=== PATIENT | female | born 1945 | race Caucasian/White ===

== ENCOUNTER 2019-02-09 08:05 | Inpatient (IN) | payer MEDICARE, OTHER ==
[2019-02-09] MEDS ORDERED: FAMOTIDINE 20 MG/50 ML IVPB 20 MG/50 ML MG IVPB ONE (08:24)
[2019-02-09] MEDS ORDERED: ACETAMINOPHEN 1000 MG/100 ML VIAL (NON FORMULARY) IVPB ONE (08:24)
[2019-02-09] MEDS ORDERED: SODIUM CHLORIDE 0.9% 1000 ML INFUS.BAG IV ONE ×2 (08:24→10:22)
[2019-02-09] MEDS ORDERED: ONDANSETRON 4 MG/2 ML VIAL IVPUSH ONE (08:24)
[2019-02-09] MEDS ORDERED: ONDANSETRON 4 MG/2 ML VIAL ONE (08:42)
[2019-02-09] MEDS ORDERED: ACETAMINOPHEN INJECTION 100 ML IVPB ONE (08:42)
[2019-02-09] MEDS ORDERED: PIPERACILLIN/TAZOB 3.375 GM 3.375 GM in DEXTROSE 5%-WATER - 50 ML IVPB ONE (09:02)
--- NOTE | 2019-02-09 09:02 | PDOC ---
Documentation entered by Angle Guthrie SCRIBE, acting as scribe for Bee Montalvo DO. Bee Montalvo, : This documentation has been prepared by the [place] [employer], SCRIBE, under my direction and personally reviewed by me in its entirety. I confirm that the documentation accurately reflects all work, treatment, procedures, and medical decision making performed by me. History of Present Illness - General Chief Complaint: Pain, Acute Stated Complaint: CHEST PAIN Time Seen by Provider: 02/09/19 08:12 - History of Present Illness Initial Comments: The patient is a 73 year old female, with a significant PMH of DMII, Hepatitis B , HLD, HTN, obesity, colon polyps, and arthralgia (right shoulder), who presents to the ED for evaluation of abdominal pain for 2 days. Patient complains of diffuse abdominal pain, worst at the RUQ, that began yesterday but became unbearable this morning. She reports 10 episodes of diarrhea, nausea, and 4 episodes of non-bloody vomit that were yellow in color. Patient states she had a hamburger yesterday, which her family members had as well and are not sick. She endorses slight chest pain and SOB secondary to her abdominal pain. Patient denies any recent hospitalizations or consumption of antibiotics. Denies fever, chills, constipation, blood in stool, dysuria, hematuria, cough, runny nose, sore throat. Allergies: NKA, NKDA Surgical History: None reported Social History: Denies EtOH, tobacco, or illicit drug use PCP: Dr. Griggs Past History - Past Medical History Allergies/Adverse Reactions: Allergies Allergy/AdvReac Type Severity Reaction Status Date / Time No Known Allergies Allergy Verified 02/09/19 08:16 Home Medications: Ambulatory Orders Amlodipine Besylate [Norvasc -] 10 mg PO DAILY 02/09/19 Hydrochlorothiazide [Hctz -] 25 mg PO DAILY 02/09/19 Lisinopril 20 mg PO DAILY 02/09/19 Metformin HCl [Glucophage] 500 mg PO BID 02/09/19 Simvastatin 20 mg PO HS 02/09/19 COPD: No Diabetes: Yes HTN: Yes - Psycho Social/Smoking Cessation Hx Smoking History: Never smoked Have you smoked in the past 12 months: No Hx Alcohol Use: No Drug/Substance Use Hx: No Substance Use Type: None Review of Systems - Review of Systems Comments:: GENERAL/CONSTITUTIONAL: No fever or chills. No weakness. HEAD, EYES, EARS, NOSE AND THROAT: No change in vision. No ear pain or discharge. No sore throat. GASTROINTESTINAL: +Nausea. +4 episodes of non-bloody vomit that is yellow in color. +10 episodes of diarrhea. +Diffuse abdominal pain, worse over the RUQ. No constipation. GENITOURINARY: No dysuria, frequency, or change in urination. CARDIOVASCULAR: +Slight chest pain (secondary to abdominal pain). +Slight SOB ( secondary to abdominal pain). RESPIRATORY: No cough, wheezing, or hemoptysis. MUSCULOSKELETAL: No joint or muscle swelling or pain. No neck or back pain. SKIN: No rash NEUROLOGIC: No headache, vertigo, loss of consciousness, or change in strength/ sensation. ENDOCRINE: No increased thirst. No abnormal weight change. HEMATOLOGIC/LYMPHATIC: No anemia, easy bleeding, or history of blood clots. ALLERGIC/IMMUNOLOGIC: No hives or skin allergy. *Physical Exam - Vital Signs Last Vital Signs Temp Pulse Resp BP Pulse Ox 97.5 F L 86 24 H 87/45 L 95 02/09/19 08:08 02/09/19 08:08 02/09/19 08:08 02/09/19 08:08 02/09/19 08:08 Heart Score/ECG Review - ECG Intrepretation Comment:: 02/09/19 08:57 sinus at 84, nl axis, nl interval, no acute st/t wave findings ED Treatment Course - LABORATORY CBC & Chemistry Diagram: 02/09/19 08:53 02/09/19 08:53 - RADIOLOGY Radiology Studies Ordered: Category Date Time Status CHEST X-RAY PORTABLE* [RAD] Stat Radiology 02/09/19 08:13 Completed Radiograph Interpretation: EXAM#: TYPE/EXAM: RESULT: [id number] RAD/CHEST X-RAY PORTABLE* Chest: Shortness of breath Impression: No acute chest pathology. Reported By: Hussain Reed MD 02/09/19 08:51 - Medications Given in the ED: ED Medications Discontinued Medications Generic Name Dose Route Start Last Admin Trade Name Freq PRN Reason Stop Dose Admin Acetaminophen 1,000 mg 02/09/19 08:24 02/09/19 08:47 Ofirmev Injection - IVPB 02/09/19 08:25 1,000 mg ONCE ONE Administration Ondansetron HCl 4 mg 02/09/19 08:24 02/09/19 08:47 Zofran Injection IVPUSH 02/09/19 08:25 4 mg ONCE ONE Administration Medical Decision Making - Medical Decision Making Medical Decision Makin:00a: a/p: 73yo female with acute onset of abd pain, n/v/d after eating a burger last night -pt states bilious, but not bloody vomitus -4 episodes of vomiting -10 episodes of diarrhea -no recent hospitalizations or abx -no recent travel -daughter ate same burger -pt with RUQ abd pain and epigastric abd pain -concern for acute alec vs pancreatitis vs gastroenteritis -will send labs, ivf hydration, zofran, tylenol for pain -will perform POCUS GB ultrasound -will monitor and reassess POCUS: gallstones, gb wallthickening, sono murphys - concerning for acute alec will start abx pending labs and discussion with surgery will call surgery when labs result 9:18a cxr clear 9:30a wbc 26 abx ordered case discussed with Dr. Gold who requests formal ultrasound 9:38 pt states feeling better updated on labs lipase 131 repeat abd exam-only RUQ ttp, +murphys 9:50a no elevated lft PMD dr. griggs who [facility] 10:25a case discussed with SYMPHONY - Dr. Benson who accepts pt under Dr. Hodges I, Dr. Bee Montalvo, DO, attest that this document has been prepared under my direction and personally reviewed by me in its entirety. I further attest, that it accurately reflects all work, treatment, procedures and medical decision -making performed by me. Discharge - Discharge Information Problems reviewed: Yes Clinical Impression/Diagnosis: Acute cholecystitis Condition: Guarded - Admission Yes - Follow up/Referral - Patient Discharge Instructions - Post Discharge Activity
[2019-02-09] MEDS ORDERED: PIPERACILLIN/TAZOB 3.375 GM 3.375 GM/50 ML BAG IVPB ONE (09:09)
[2019-02-09 09:11] LABS: VENOUS PC02 58.7 mmHg (38-52); VENOUS PH 7.27 (7.31-7.41)
[2019-02-09 09:15] LABS: BASO % 0.3 % (0-2.0); EOS % 0.3 % (0-4.5); HEMATOCRIT 46.9 % (32.4-45.2); HEMOGLOBIN 15.1 GM/dL (10.7-15.3); LYMPH % 8.7 % (8-40); MCH 28.5 pg (25.7-33.7); MCHC 32.2 g/dl (32.0-36.0); MEAN CELL VOLUME 88.5 fl (80-96); MEAN PLT VOLUME 9.2 fl (7.5-11.1); MONO % 5.6 % (3.8-10.2); NEUT % 85.1 % (42.8-82.8); PLATELET COUNT 269 K/MM3 (134-434); RDW 15.1 % (11.6-15.6); WHITE BLOOD COUNT 26.1 K/mm3 (4.0-10.0)
[2019-02-09 09:19] LABS: VENOUS PO2 < 49 mmHg (28-48)
[2019-02-09 09:40] LABS: ALK PHOS 87 U/L (45-117); ANION GAP 10 MMOL/L (8-16); BILIRUBIN,TOTAL 0.4 mg/dL (0.2-1); BLOOD UREA NITROGEN 19.6 mg/dL (7-18); CALCIUM 9.9 mg/dL (8.5-10.1); CHLORIDE 104 mmol/L (98-107); CO2 24 mmol/L (21-32); CREATININE 1.4 mg/dL (0.55-1.3); GLUCOSE,RANDOM 130 mg/dL (74-106); SGOT/AST 31 U/L (15-37); SGPT/ALT 35 U/L (13-61); SODIUM 138 mmol/L (136-145); TOT PROT 7.9 g/dl (6.4-8.2)
[2019-02-09 09:44] LABS: MAGNESIUM 2.2 mg/dL (1.8-2.4)
[2019-02-09] MEDS ORDERED: ACETAMINOPHEN 325 MG TABLET (FP) PO PRN (10:28)
[2019-02-09 10:29] LABS: INR 0.92 (0.83-1.09); PROTHROMBIN TIME (PATIENT) 10.9 SEC (9.7-13.0)
[2019-02-09 10:31] LABS: ACTIVATED PTT 33.9 SECONDS (25.2-36.5)
--- NOTE | 2019-02-09 10:35 | HP ---
CHIEF COMPLAINT: RUQ pain PCP: Dr. Griggs HISTORY OF PRESENT ILLNESS: Patient is a 73 y/o female with a history of diabetes, HLD, HTN, and colon polyps who presents for RUQ pain. Patient reports the pain started this morning. Patient had a burger yesterday and had episodes of vomiting after. Patient has had 4 episodes of NBNB vomiting and multiple episodes of diarrhea. Neither had blood. Patient reports she does not eat much food with fat, she reports she has never had this pain in the past. She denies fever, shortness of breath, headache, or weakness. ER course was notable for: (1)POCUS: wall thickening of gallbladder with multiple stones (2) 500 mL bolus (3) Recent Travel: denies PAST MEDICAL HISTORY: diabetes, HLD, HTN, and colon polyps PAST SURGICAL HISTORY: denies Social History: Smoking: denies Alcohol: denies Drugs: denies Allergies No Known Allergies Allergy (Verified 02/09/19 08:16) HOME MEDICATIONS: Home Medications Medication Instructions Recorded Amlodipine Besylate [Norvasc -] 10 mg PO DAILY 02/09/19 Hydrochlorothiazide [Hctz -] 25 mg PO DAILY 02/09/19 Lisinopril 20 mg PO DAILY 02/09/19 Metformin HCl [Glucophage] 500 mg PO BID 02/09/19 Simvastatin 20 mg PO HS 02/09/19 REVIEW OF SYSTEMS CONSTITUTIONAL: Absent: fever, chills, diaphoresis, generalized weakness, malaise, loss of appetite, weight change HEENT: Absent: rhinorrhea, nasal congestion, throat pain, throat swelling, difficulty swallowing, mouth swelling, ear pain, eye pain, visual changes CARDIOVASCULAR: Absent: chest pain, syncope, palpitations, irregular heart rate, lightheadedness , peripheral edema RESPIRATORY: Absent: cough, shortness of breath, dyspnea with exertion, orthopnea, wheezing, stridor, hemoptysis GASTROINTESTINAL:abdominal pain, nausea, vomiting, diarrhea, Absent: abdominal distension, constipation, melena, hematochezia GENITOURINARY: Absent: dysuria, frequency, urgency, hesitancy, hematuria, flank pain, genital pain MUSCULOSKELETAL: Absent: myalgia, arthralgia, joint swelling, back pain, neck pain SKIN: Absent: rash, itching, pallor HEMATOLOGIC/IMMUNOLOGIC: Absent: easy bleeding, easy bruising, lymphadenopathy, frequent infections ENDOCRINE: Absent: unexplained weight gain, unexplained weight loss, heat intolerance, cold intolerance NEUROLOGIC: Absent: headache, focal weakness or paresthesias, dizziness, unsteady gait, seizure, mental status changes, bladder or bowel incontinence PSYCHIATRIC: Absent: anxiety, depression, suicidal or homicidal ideation, hallucinations. PHYSICAL EXAMINATION Vital Signs - 24 hr 02/09/19 02/09/19 08:08 09:17 Temperature 97.5 F L Pulse Rate 86 Pulse Rate [ 84 Apical] Respiratory 24 H 19 Rate Blood Pressure 87/45 L Blood Pressure 97/50 L [Right Arm] O2 Sat by Pulse 95 Oximetry (%) GENERAL: Awake, alert, and fully oriented, in no acute distress. HEAD: Normal with no signs of trauma. EYES: Pupils equal, round and reactive to light, extraocular movements intact, sclera anicteric, conjunctiva clear. No lid lag. EARS, NOSE, THROAT: Ears normal, nares patent, oropharynx clear without exudates. Moist mucous membranes. NECK: Normal range of motion, supple without lymphadenopathy, JVD, or masses. LUNGS: Breath sounds equal, clear to auscultation bilaterally. No wheezes, and no crackles. No accessory muscle use. HEART: Regular rate and rhythm, normal S1 and S2 without murmur, rub or gallop. ABDOMEN: Soft, nontender, not distended, normoactive bowel sounds, no guarding, no rebound, no masses. No hepatomegaly or splenomegaly. MUSCULOSKELETAL: Normal range of motion at all joints. No bony deformities or tenderness. No CVA tenderness. UPPER EXTREMITIES: 2+ pulses, warm, well-perfused. No cyanosis. No clubbing. No peripheral edema. LOWER EXTREMITIES: 2+ pulses, warm, well-perfused. No calf tenderness. No peripheral edema. NEUROLOGICAL: Cranial nerves II-XII intact. Normal speech. Normal gait. PSYCHIATRIC: Cooperative. Good eye contact. Appropriate mood and affect. SKIN: Warm, dry, normal turgor, no rashes or lesions noted, normal capillary refill. CBC, BMP 02/09/19 08:53 02/09/19 08:53 ASSESSMENT/PLAN: Patient is a 73 y/o female with a history of diabetes, HLD, HTN, and colon polyps who presents for RUQ pain. #acute cholecystitis - As seen on POCUS: gallbladder thickening and multiple stones - RUQ US: gallbladder normal, with stones, hepatomegaly - Dr. Gold aware - zofran q4h prn for nausea, QTC 455 - tylenol prn for pain - reactive leukocytosis - Zosyn 1x given, will continue with Zosyn - f/u Abd CT #DOROTHY - continue LR @ 100 - Cr 1.4, likely 2/2 to volume depletion with lactic acidosis - f/u UA #Lactic acidsois - likely from hypovolemia 2/2 to vomiting and diarrhea - 3.7, f/u repeat @ 1pm > 2 - continue fluids, received 2 boluses in the ED #HTN - hold medications in setting of hypotension #DM - BGM TID AC - SS #obesity - discuss weight loss management - BMI 41 - consider outpatient bariatric surgeon #DVT ppx - SCD's FEN - NPO - continue NS Dispo: monitor on med surg Visit type - Emergency Visit Emergency Visit: Yes ED Registration Date: 02/09/19 Care time: The patient presented to the Emergency Department on the above date and was hospitalized for further evaluation of their emergent condition. - New Patient This patient is new to me today: Yes Date on this admission: 02/10/19 - Critical Care Critical Care patient: No ATTENDING PHYSICIAN STATEMENT I saw and evaluated the patient. I reviewed the resident's note and discussed the case with the resident. I agree with the resident's findings and plan as documented. SUBJECTIVE: OBJECTIVE: ASSESSMENT AND PLAN:
[2019-02-09] MEDS ORDERED: ONDANSETRON 4 MG/2 ML VIAL IVPUSH PRN (10:37)
[2019-02-09] MEDS: LACTATED RINGERS SOLUTION 1,000 ML IV SCH ×2 (11:51→23:02)
--- NOTE | 2019-02-09 12:20 | EKG ---
Test Reason : Blood Pressure : / mmHG Vent. Rate : 084 BPM Atrial Rate : 084 BPM P-R Int : 126 ms QRS Dur : 086 ms QT Int : 394 ms P-R-T Axes : 059 059 048 degrees QTc Int : 465 ms POOR DATA QUALITY, INTERPRETATION MAY BE ADVERSELY AFFECTED NORMAL SINUS RHYTHM NORMAL ECG NO PREVIOUS ECGS AVAILABLE Confirmed by BHARATH CARROLL MD ([id number]) on 02/09/2019 12:20:26 PM Referred By: Confirmed By:BHARATH CARROLL MD
[2019-02-09] MEDS: INSULIN SLIDING SCALE (NOVOLOG) 1 VIAL SQ SCH ×3 (12:40→21:52)
[2019-02-09 13:53] LABS: PLATELET ESTIMATE ADEQUATE
--- NOTE | 2019-02-09 15:59 | CONSULT ---
- Consultation REQUESTING PROVIDER: Bee Montalvo DO CONSULT REQUEST: We have been asked to surgically evaluate this patient for possible symptomatic gallbladder disease. PCP:Bogdan Hodges MD HISTORY OF PRESENT ILLNESS:PANKAJ who is a 73 year old female, who presented to the ED for evaluation of abdominal pain for 2 days. Patient complains of epigastric and ?RUQ pain, that began 02/08/19 but became unbearable this morning. She reported 10 episodes of diarrhea, nausea, and 4 episodes of emesisb Patient states she had a hamburger yesterday, which her family members had as well and are not sick. She never had this before and denies any other GI/ /[employer]BI[employer] HOME [employer] UP PERSON c/o. PMHx: HTN/HLD/NIDDM PSHx: none Home Medications Medication Instructions Recorded Amlodipine Besylate [Norvasc -] 10 mg PO DAILY 02/09/19 Hydrochlorothiazide [Hctz -] 25 mg PO DAILY 02/09/19 Lisinopril 20 mg PO DAILY 02/09/19 Metformin HCl [Glucophage] 500 mg PO BID 02/09/19 Metformin HCl [Metformin HCl ER] 500 mg PO BID 02/09/19 Simvastatin 20 mg PO HS 02/09/19 Allergies Allergy/AdvReac Type Severity Reaction Status Date / Time No Known Allergies Allergy Verified 02/09/19 08:16 REVIEW OF SYSTEMS: CONSTITUTIONAL: Absent: fever, chills, diaphoresis, generalized weakness, malaise, loss of appetite, weight change CARDIOVASCULAR: Absent: chest pain, syncope, palpitations, irregular heart rate, lightheadedness , peripheral edema RESPIRATORY: Absent: cough, shortness of breath, dyspnea with exertion, wheezing, stridor, hemoptysis GASTROINTESTINAL: Present: abdominal pain, abdominal distension, nausea, vomiting GENITOURINARY: Absent: dysuria, frequency, urgency, hesitancy, hematuria, flank pain, genital pain MUSCULOSKELETAL: Absent: myalgia, arthralgia, joint swelling, back pain, neck pain SKIN: Absent: rash, itching, pallor HEMATOLOGIC/IMMUNOLOGIC: Absent: easy bleeding, easy bruising, lymphadenopathy NEUROLOGIC: Absent: headache, focal weakness, paresthesias, dizziness, unsteady gait, seizure, mental status changes, bladder or bowel incontinence PSYCHIATRIC: Absent: anxiety, depression, suicidal or homicidal ideation, hallucinations. PHYSICAL EXAM: GENERAL: Awake, alert, and fully oriented, in no acute distress. HEAD: Normal with no signs of trauma. EYES: sclera anicteric, conjunctiva clear. NECK: Normal ROM, supple without lymphadenopathy, JVD, or masses. ABDOMEN: Soft, minimally tender in the RUQ, not distended, normoactive bowel sounds, no guarding, no rebound, no masses. No organomegaly. No hernias MUSCULOSKELETAL: Normal ROM at all joints. No bony deformities or tenderness. No CVA tenderness. UPPER EXTREMITIES: 2+ pulses, warm, well-perfused. No cyanosis. Cap refill <2 seconds. No peripheral edema. LOWER EXTREMITIES: 2+ pulses, warm, well-perfused. No calf tenderness. No peripheral edema. NEUROLOGICAL: Normal speech, gait not observed. PSYCH: Cooperative. Good eye contact. Appropriate mood and affect. SKIN: Warm, dry, normal turgor, no rashes or lesions noted. Vital Signs Temperature 97.5 F L 02/09/19 08:08 Pulse Rate 86 02/09/19 11:50 Respiratory Rate 17 02/09/19 11:50 Blood Pressure 102/63 02/09/19 11:50 O2 Sat by Pulse Oximetry (%) 95 02/09/19 08:08 Lab Results WBC 26.1 K/mm3 (4.0-10.0) H 02/09/19 08:53 RBC 5.30 M/mm3 (3.60-5.2) H 02/09/19 08:53 Hgb 15.1 GM/dL (10.7-15.3) 02/09/19 08:53 Hct 46.9 % (32.4-45.2) H 02/09/19 08:53 MCV 88.5 fl (80-96) 02/09/19 08:53 MCHC 32.2 g/dl (32.0-36.0) 02/09/19 08:53 RDW 15.1 % (11.6-15.6) 02/09/19 08:53 Plt Count 269 K/MM3 (134-434) 02/09/19 08:53 Sodium 138 mmol/L (136-145) 02/09/19 08:53 Potassium 4.0 mmol/L (3.5-5.1) 02/09/19 08:53 Chloride 104 mmol/L (98-107) 02/09/19 08:53 Carbon Dioxide 24 mmol/L (21-32) 02/09/19 08:53 Anion Gap 10 MMOL/L (8-16) 02/09/19 08:53 BUN 19.6 mg/dL (7-18) H 02/09/19 08:53 Creatinine 1.4 mg/dL (0.55-1.3) H 02/09/19 08:53 Random Glucose 130 mg/dL (74-106) H 02/09/19 08:53 Calcium 9.9 mg/dL (8.5-10.1) 02/09/19 08:53 Blood Type O POSITIVE 02/09/19 08:53 Antibody Screen Negative 02/09/19 08:53 INR 0.92 (0.83-1.09) 02/09/19 08:53 CT abdo/pelvis reviewed. US reviewed IMP:biliary colic; ? acute cholecystitis ? PLAN; Suggest NPO/IVABS/IVF/HIDA scan and if postive lap alec possible open . Aguila Gold MD FACS
[2019-02-09] MEDS ORDERED: PIPERACILLIN/TAZOBACTAM 3.375 GM VIAL IVPB ONE (17:24)
[2019-02-09] MEDS ORDERED: DEXTROSE 5%-WATER - 50 ML IVPB ONE (17:24)
[2019-02-09] MEDS ORDERED: PIPERACILLIN/TAZOB 3.375 GM 3.375 GM in DEXTROSE 5%-WATER - 50 ML IVPB SCH (18:00)
[2019-02-09] MEDS: PIPERACILLIN/TAZOB 3.375 GM 3.375 GM in DEXTROSE 5%-WATER - 50 ML IVPB SCH (18:05)
--- NOTE | 2019-02-09 20:57 | PN ---
Teaching Attending Note Name of Resident: Lindsey Benson ATTENDING PHYSICIAN STATEMENT I saw and evaluated the patient. I reviewed the resident's note and discussed the case with the resident. I agree with the resident's findings and plan as documented. SUBJECTIVE: Complains of epigastric, RUQ pain with associated nausea/vomiting/ diarrhea. No fever/chills. OBJECTIVE: Afebrile, Hemodynamically Stable. Last Vital Signs Temp Pulse Resp BP Pulse Ox 97.9 F 90 18 126/75 95 02/09/19 15:45 02/09/19 18:58 02/09/19 18:58 02/09/19 18:58 02/09/19 18:35 HEENT- Atraumatic, Normocephalic. Heart - S1, S2, RRR Lungs - clear to auscultation Abdomen - RUQ/Epigastric tenderness. Bowel Sounds normal. Extremities - no edema, no calf tenderness. Neuro - AAO x 3. Tone/Power normal all extremities. Laboratory Results - last 24 hr 02/09/19 02/09/19 02/09/19 08:53 08:53 08:53 WBC 26.1 H RBC 5.30 H Hgb 15.1 Hct 46.9 H MCV 88.5 MCH 28.5 MCHC 32.2 RDW 15.1 Plt Count 269 MPV 9.2 Absolute Neuts (auto) 22.2 H Total Counted 100 Neutrophils % 85.1 H Neutrophils % (Manual) 77.0 Band Neutrophils % 10.0 Lymphocytes % 8.7 Lymphocytes % (Manual) 9.0 Monocytes % 5.6 Monocytes % (Manual) 4 Eosinophils % 0.3 Basophils % 0.3 Nucleated RBC % 0 Platelet Estimate Adequate PT with INR INR PTT (Actin FS) Cancelled VBG pH POC VBG pCO2 POC VBG pO2 VBG HCO3 VBG O2 Sat (Chang) VBG Base Excess Sodium 138 Potassium 4.0 Chloride 104 Carbon Dioxide 24 Anion Gap 10 BUN 19.6 H Creatinine 1.4 H Est GFR (CKD-EPI)AfAm 43.70 Est GFR (CKD-EPI)NonAf 37.71 Random Glucose 130 H Lactic Acid Calcium 9.9 Magnesium Total Bilirubin 0.4 AST 31 ALT 35 Alkaline Phosphatase 87 Creatine Kinase 196 H Creatine Kinase Index 1.0 CK-MB (CK-2) 2.0 Troponin I < 0.02 Total Protein 7.9 Albumin 4.0 Lipase Blood Type Antibody Screen 02/09/19 02/09/19 02/09/19 08:53 08:53 08:53 WBC RBC Hgb Hct MCV MCH MCHC RDW Plt Count MPV Absolute Neuts (auto) Total Counted Neutrophils % Neutrophils % (Manual) Band Neutrophils % Lymphocytes % Lymphocytes % (Manual) Monocytes % Monocytes % (Manual) Eosinophils % Basophils % Nucleated RBC % Platelet Estimate PT with INR 10.90 INR 0.92 PTT (Actin FS) 33.9 VBG pH POC VBG pCO2 POC VBG pO2 VBG HCO3 VBG O2 Sat (Chang) VBG Base Excess Sodium Potassium Chloride Carbon Dioxide Anion Gap BUN Creatinine Est GFR (CKD-EPI)AfAm Est GFR (CKD-EPI)NonAf Random Glucose Lactic Acid 3.7 H* Calcium Magnesium 2.2 Total Bilirubin AST ALT Alkaline Phosphatase Creatine Kinase Creatine Kinase Index CK-MB (CK-2) Troponin I Total Protein Albumin Lipase 131 Blood Type Antibody Screen 02/09/19 02/09/19 02/09/19 08:53 08:53 12:32 WBC RBC Hgb Hct MCV MCH MCHC RDW Plt Count MPV Absolute Neuts (auto) Total Counted Neutrophils % Neutrophils % (Manual) Band Neutrophils % Lymphocytes % Lymphocytes % (Manual) Monocytes % Monocytes % (Manual) Eosinophils % Basophils % Nucleated RBC % Platelet Estimate PT with INR INR PTT (Actin FS) VBG pH 7.27 L POC VBG pCO2 58.7 H POC VBG pO2 < 49 H VBG HCO3 26.1 VBG O2 Sat (Chang) 33.7 L VBG Base Excess -1.6 Sodium Potassium Chloride Carbon Dioxide Anion Gap BUN Creatinine Est GFR (CKD-EPI)AfAm Est GFR (CKD-EPI)NonAf Random Glucose Lactic Acid 2.0 Calcium Magnesium Total Bilirubin AST ALT Alkaline Phosphatase Creatine Kinase Creatine Kinase Index CK-MB (CK-2) Troponin I Total Protein Albumin Lipase Blood Type O POSITIVE Antibody Screen Negative Current Medications Generic Name Dose Route Start Last Admin Trade Name Freq PRN Reason Stop Dose Admin Acetaminophen 650 mg 02/09/19 10:28 Tylenol - PO Q4H PRN PAIN OR FEVER Lactated Ringer's 1,000 mls @ 100 mls/hr 02/09/19 10:30 02/09/19 11:51 Lactated Ringers Solution IV 100 mls/hr ASDIR GEOVANNY Administration Piperacillin Sod/Tazobactam 50 mls @ 100 mls/hr 02/09/19 18:00 Sod 3.375 gm/ Dextrose IVPB Q8H-IV GEOVANNY Protocol Piperacillin Sod/Tazobactam 50 mls @ 100 mls/hr 02/09/19 18:00 02/09/19 18:05 Sod 3.375 gm/ Dextrose IVPB 02/10/19 10:29 100 mls/hr Q8H-IV GEOVANNY Administration Insulin Aspart 1 vial 02/09/19 11:00 02/09/19 18:05 Novolog Vial Sliding Scale - SQ Not Given ACHS GEOVANNY Protocol Ondansetron HCl 4 mg 02/09/19 10:37 Zofran Injection IVPUSH Q6H PRN NAUSEA Home Medications Medication Instructions Recorded Amlodipine Besylate [Norvasc -] 10 mg PO DAILY 02/09/19 Hydrochlorothiazide [Hctz -] 25 mg PO DAILY 02/09/19 Lisinopril 20 mg PO DAILY 02/09/19 Metformin HCl [Glucophage] 500 mg PO BID 02/09/19 Metformin HCl [Metformin HCl ER] 500 mg PO BID 02/09/19 Simvastatin 20 mg PO HS 02/09/19 ASSESSMENT AND PLAN: 73 year old female with history fo DM 2, HLD, HTN, presents with 2 day history of RUQ/Epigastric pain, with associated nausea/vomiting/diarrhea. 1. Acute Cholecystitis Abdo US - Cholelithiasis, Hepatomegaly CT A/P - Cholelithiasis Leukocytosis, WBC 26.1 Lactate 3.7 Clinically suggestive of cholecystitis LFTs wnl NPO/IV Fluids/IV Zosyn Surgery consulted - recommends HIDA 2. DOROTHY vs CKD 3 Need to get records for baseline Creatinine levels. IV hydration ongoing No obstruction on imaging. 3. HTN - Hold home antihypertensive meds (Lisinopril, HCTZ, Norvasc) in light of borderline BP 4. DM 2 - Maintain on Novolog sliding scale. Metformin held. Currently NPO pending HIDA and further surgical eval/intervention 5. HLD - Normally on Statin DVT Px - Heparin SQ
[2019-02-09] MEDS ORDERED: INSULIN (NOVOLOG) ASPART 100 UNITS/ML 10ML VIAL ONE (21:45)
[2019-02-09] MEDS: HEPARIN NA (PORCINE) 5,000 UNITS/ML 1ML VIAL SQ SCH ×2 (21:52→21:53)
[2019-02-10] MEDS ORDERED: PIPERACILLIN/TAZOBACTAM 3.375 GM VIAL IVPB ONE ×2 (01:41→10:12)
[2019-02-10] MEDS ORDERED: DEXTROSE 5%-WATER - 50 ML IVPB ONE ×2 (01:41→10:12)
[2019-02-10] MEDS: PIPERACILLIN/TAZOB 3.375 GM 3.375 GM in DEXTROSE 5%-WATER - 50 ML IVPB SCH ×2 (01:46→10:15)
[2019-02-10] MEDS: INSULIN SLIDING SCALE (NOVOLOG) 1 VIAL SQ SCH ×4 (06:42→21:24)
[2019-02-10] MEDS ORDERED: PROCHLORPERAZINE INJECTION 10 MG/2 ML VIAL IVPB PRN (06:42)
[2019-02-10] MEDS: HEPARIN NA (PORCINE) 5,000 UNITS/ML 1ML VIAL SQ SCH ×3 (06:43→21:24)
--- NOTE | 2019-02-10 07:45 | PN ---
Progress Note (short form) - Note Progress Note: 73 yo female w/ admitted w/ epigastric, RUQ pain with associated n/v/d. Last Vital Signs Temp Pulse Resp BP Pulse Ox 98.8 F 91 H 20 126/69 94 L 02/10/19 06:56 02/10/19 06:56 02/10/19 06:56 02/10/19 06:56 02/09/19 21:00 Hepatic Panel Total Bilirubin 0.4 mg/dL (0.2-1) 02/09/19 08:53 AST 31 U/L (15-37) 02/09/19 08:53 ALT 35 U/L (13-61) 02/09/19 08:53 Alkaline Phosphatase 87 U/L (45-117) 02/09/19 08:53 Albumin 4.0 g/dl (3.4-5.0) 02/09/19 08:53 TREND 02/09/19 02/09/19 02/09/19 02/10/19 08:53 08:53 12:32 06:55 WBC 26.1 H Pending Lactic Acid 3.7 H* 2.0 INR, PTT INR 0.92 (0.83-1.09) 02/09/19 08:53 PE Gen: nad ABD: Obese habitus. Soft, RUQ minimally TTP. Not distended. Normoactive BS throughout. Problem List - Problems (1) Abdominal pain in female Assessment/Plan: f/u CBC NPO IVF GI PPX DVT PPX f/u HIDA scan --> if positive, will place on OR schedule for lap alec 02/11/19 Code(s): R10.9 - UNSPECIFIED ABDOMINAL PAIN
[2019-02-10] MEDS ORDERED: INSULIN (NOVOLOG) ASPART 100 UNITS/ML 10ML VIAL ONE (08:02)
[2019-02-10 08:34] LABS: ALBUMIN 3.1 g/dl (3.4-5.0); BILIRUBIN,TOTAL 0.6 mg/dL (0.2-1); BLOOD UREA NITROGEN 19.1 mg/dL (7-18); CALCIUM 8.8 mg/dL (8.5-10.1); MAGNESIUM 2.2 mg/dL (1.8-2.4); PHOSPHOROUS 3.5 mg/dL (2.5-4.9); POTASSIUM 3.8 mmol/L (3.5-5.1); TOT PROT 6.4 g/dl (6.4-8.2)
[2019-02-10 08:43] LABS: BASO % 0.3 % (0-2.0); EOS % 1.7 % (0-4.5); HEMATOCRIT 35.2 % (32.4-45.2); HEMOGLOBIN 11.8 GM/dL (10.7-15.3); LYMPH % 33.2 % (8-40); MCH 29.3 pg (25.7-33.7); MCHC 33.4 g/dl (32.0-36.0); MEAN CELL VOLUME 87.7 fl (80-96); MEAN PLT VOLUME 9.3 fl (7.5-11.1); MONO % 4.6 % (3.8-10.2); NEUT % 60.2 % (42.8-82.8); PLATELET COUNT 198 K/MM3 (134-434); RBC 4.02 M/mm3 (3.60-5.2); RDW 14.9 % (11.6-15.6); WHITE BLOOD COUNT 9.8 K/mm3 (4.0-10.0)
--- NOTE | 2019-02-10 11:37 | PN ---
Physical Exam: SUBJECTIVE: Patient seen and examined OBJECTIVE: Vital Signs Period Temp Pulse Resp BP Sys/Perkins Pulse Ox Last 24 Hr 97.9 F-98.8 F 76-91 17-20 102-126/63-75 93-95 GENERAL: The patient is awake, alert, and fully oriented, in no acute distress. HEAD: Normal with no signs of trauma. EYES: PERRL, extraocular movements intact, sclera anicteric, conjunctiva clear. No ptosis. ENT: Ears normal, nares patent, oropharynx clear without exudates, moist mucous membranes. NECK: Trachea midline, full range of motion, supple. LUNGS: Breath sounds equal, clear to auscultation bilaterally, no wheezes, no crackles, no accessory muscle use. HEART: Regular rate and rhythm, S1, S2 without murmur, rub or gallop. ABDOMEN: Soft, nontender, nondistended, normoactive bowel sounds, no guarding, no rebound, no hepatosplenomegaly, no masses. EXTREMITIES: 2+ pulses, warm, well-perfused, no edema. NEUROLOGICAL: Cranial nerves II through XII grossly intact. Normal speech, gait not observed. PSYCH: Normal mood, normal affect. SKIN: Warm, dry, normal turgor, no rashes or lesions noted Laboratory Results - last 24 hr 02/09/19 02/09/19 02/09/19 08:53 12:32 21:51 WBC RBC Hgb Hct MCV MCH MCHC RDW Plt Count MPV Absolute Neuts (auto) Total Counted 100 Neutrophils % Neutrophils % (Manual) 77.0 Band Neutrophils % 10.0 Lymphocytes % Lymphocytes % (Manual) 9.0 Monocytes % Monocytes % (Manual) 4 Eosinophils % Basophils % Nucleated RBC % Platelet Estimate Adequate Sodium Potassium Chloride Carbon Dioxide Anion Gap BUN Creatinine Est GFR (CKD-EPI)AfAm Est GFR (CKD-EPI)NonAf POC Glucometer 98 Random Glucose Lactic Acid 2.0 Calcium Phosphorus Magnesium Total Bilirubin AST ALT Alkaline Phosphatase Total Protein Albumin 02/10/19 02/10/19 02/10/19 06:40 06:55 06:55 WBC 9.8 RBC 4.02 Hgb 11.8 Hct 35.2 D MCV 87.7 MCH 29.3 MCHC 33.4 RDW 14.9 Plt Count 198 D MPV 9.3 Absolute Neuts (auto) 5.9 Total Counted Neutrophils % 60.2 D Neutrophils % (Manual) Band Neutrophils % Lymphocytes % 33.2 D Lymphocytes % (Manual) Monocytes % 4.6 Monocytes % (Manual) Eosinophils % 1.7 D Basophils % 0.3 Nucleated RBC % 0 Platelet Estimate Sodium 145 Potassium 3.8 Chloride 111 H Carbon Dioxide 27 Anion Gap 7 L BUN 19.1 H Creatinine 1.0 Est GFR (CKD-EPI)AfAm 65.64 Est GFR (CKD-EPI)NonAf 56.64 POC Glucometer 111 Random Glucose 102 Lactic Acid Calcium 8.8 Phosphorus 3.5 Magnesium 2.2 Total Bilirubin 0.6 AST 21 ALT 26 Alkaline Phosphatase 56 Total Protein 6.4 Albumin 3.1 L Active Medications Generic Name Dose Route Start Last Admin Trade Name Freq PRN Reason Stop Dose Admin Acetaminophen 650 mg 02/09/19 10:28 Tylenol - PO Q4H PRN PAIN OR FEVER Heparin Sodium (Porcine) 5,000 unit 02/09/19 22:00 02/10/19 06:43 Heparin - SQ 5,000 unit TID GEOVANNY Administration Lactated Ringer's 1,000 mls @ 100 mls/hr 02/09/19 10:30 02/09/19 23:02 Lactated Ringers Solution IV 100 mls/hr ASDIR GEOVANNY Administration Piperacillin Sod/Tazobactam 50 mls @ 100 mls/hr 02/09/19 18:00 Sod 3.375 gm/ Dextrose IVPB Q8H-IV GEVOANNY Protocol Insulin Aspart 1 vial 02/09/19 11:00 02/10/19 06:42 Novolog Vial Sliding Scale - SQ Not Given ACHS GEOVANNY Protocol Prochlorperazine Edisylate 10 mg 02/10/19 06:42 Compazine Injection - IVPB Q6H PRN NAUSEA AND/OR VOMITING ASSESSMENT/PLAN: Hold heparin at midnight for possible procedure tomorrow. NPO after midnight. ATTENDING PHYSICIAN STATEMENT I saw and evaluated the patient. I reviewed the resident's note and discussed the case with the resident. I agree with the resident's findings and plan as documented. SUBJECTIVE: OBJECTIVE: ASSESSMENT AND PLAN:
--- NOTE | 2019-02-10 13:27 | PN ---
Progress Note (short form) - Note Progress Note: Attending Surgeon No c/o pain Last Vital Signs Temp Pulse Resp BP Pulse Ox 98.0 F 88 20 126/68 95 02/10/19 10:00 02/10/19 10:00 02/10/19 06:56 02/10/19 10:00 02/10/19 10:00 abdo-soft and non tender WBC nl today HIDA looks negative IMP: biliary colic PLAN: Lap alec possible open 02/11/19; r/b/t/a's and indications discussed in [place] [employer] w/the patient. Aguila Gold MD FACS
[2019-02-10] MEDS: LACTATED RINGERS SOLUTION 1,000 ML IV SCH (13:55)
--- NOTE | 2019-02-10 16:13 | PN ---
Teaching Attending Note Name of Resident: Hedy Turner ATTENDING PHYSICIAN STATEMENT I saw and evaluated the patient. I reviewed the resident's note and discussed the case with the resident. I agree with the resident's findings and plan as documented. SUBJECTIVE: Epigastric/RUQ pain resolved. No further nausea/vomiting/diarrhea. No fever/chills. OBJECTIVE: Afebrile, Hemodynamically Stable. Last Vital Signs Temp Pulse Resp BP Pulse Ox 97.9 F 71 20 140/77 95 02/10/19 14:46 02/10/19 14:46 02/10/19 14:46 02/10/19 14:46 02/10/19 10:00 Heart - S1, S2, RRR Lungs - clear to auscultation Abdomen - RUQ/Epigastric tenderness improved. Bowel Sounds normal. Extremities - no edema, no calf tenderness. Neuro - AAO x 3. Tone/Power normal all extremities. Laboratory Results - last 24 hr 02/09/19 02/10/19 02/10/19 21:51 06:40 06:55 WBC 9.8 RBC 4.02 Hgb 11.8 Hct 35.2 D MCV 87.7 MCH 29.3 MCHC 33.4 RDW 14.9 Plt Count 198 D MPV 9.3 Absolute Neuts (auto) 5.9 Neutrophils % 60.2 D Lymphocytes % 33.2 D Monocytes % 4.6 Eosinophils % 1.7 D Basophils % 0.3 Nucleated RBC % 0 Sodium Potassium Chloride Carbon Dioxide Anion Gap BUN Creatinine Est GFR (CKD-EPI)AfAm Est GFR (CKD-EPI)NonAf POC Glucometer 98 111 Random Glucose Calcium Phosphorus Magnesium Total Bilirubin AST ALT Alkaline Phosphatase Total Protein Albumin 02/10/19 02/10/19 06:55 11:39 WBC RBC Hgb Hct MCV MCH MCHC RDW Plt Count MPV Absolute Neuts (auto) Neutrophils % Lymphocytes % Monocytes % Eosinophils % Basophils % Nucleated RBC % Sodium 145 Potassium 3.8 Chloride 111 H Carbon Dioxide 27 Anion Gap 7 L BUN 19.1 H Creatinine 1.0 Est GFR (CKD-EPI)AfAm 65.64 Est GFR (CKD-EPI)NonAf 56.64 POC Glucometer 109 Random Glucose 102 Calcium 8.8 Phosphorus 3.5 Magnesium 2.2 Total Bilirubin 0.6 AST 21 ALT 26 Alkaline Phosphatase 56 Total Protein 6.4 Albumin 3.1 L Current Medications Generic Name Dose Route Start Last Admin Trade Name Freq PRN Reason Stop Dose Admin Acetaminophen 650 mg 02/09/19 10:28 Tylenol - PO Q4H PRN PAIN OR FEVER Heparin Sodium (Porcine) 5,000 unit 02/09/19 22:00 02/10/19 13:55 Heparin - SQ 5,000 unit TID GEOVANNY Administration Lactated Ringer's 1,000 mls @ 100 mls/hr 02/09/19 10:30 02/10/19 13:55 Lactated Ringers Solution IV 100 mls/hr ASDIR GEOVANNY Administration Piperacillin Sod/Tazobactam 50 mls @ 100 mls/hr 02/09/19 18:00 Sod 3.375 gm/ Dextrose IVPB Q8H-IV GEOVANNY Protocol Insulin Aspart 1 vial 02/09/19 11:00 02/10/19 11:44 Novolog Vial Sliding Scale - SQ Not Given ACHS [facility] Protocol Prochlorperazine Edisylate 10 mg 02/10/19 06:42 Compazine Injection - IVPB Q6H PRN NAUSEA AND/OR VOMITING Home Medications Medication Instructions Recorded Amlodipine Besylate [Norvasc -] 10 mg PO DAILY 02/09/19 Hydrochlorothiazide [Hctz -] 25 mg PO DAILY 02/09/19 Lisinopril 20 mg PO DAILY 02/09/19 Metformin HCl [Metformin HCl ER] 500 mg PO BID 02/09/19 Simvastatin 20 mg PO HS 02/09/19 ASSESSMENT AND PLAN: 73 year old female with history fo DM 2, HLD, HTN, presents with 2 day history of RUQ/Epigastric pain, with associated nausea/vomiting/diarrhea. 1. Bliary colic ?cholecystitis Abdo US - Cholelithiasis, Hepatomegaly CT A/P - Cholelithiasis Leukocytosis resolved, WBC 26.1 ---> 9.8 Lactic Acidosis resolved. LFTs wnl NPO/IV Fluids/IV Zosyn HIDA result pending. Surgery consulted - for OR tomorrow for cholecystectomy 2. DOROTHY - resolved with IV hydration. No obstruction on imaging. 3. HTN - Home antihypertensive meds (Lisinopril, HCTZ, Norvasc) held. Monitor BP. 4. DM 2 - Maintain on Novolog sliding scale. Metformin held. Currently NPO pending further surgical eval/intervention 5. HLD - Normally on Statin DVT Px - Heparin SQ
[2019-02-11] MEDS: INSULIN SLIDING SCALE (NOVOLOG) 1 VIAL SQ SCH ×4 (07:01→22:00)
[2019-02-11] MEDS ORDERED: BUPIVACAINE HCL/PF 0.5% (5 MG/ML) 30 ML VIAL IJ ONE ×3 (07:24→09:23)
[2019-02-11] MEDS ORDERED: PROMETHAZINE HCL 25 MG/1 ML VIAL IVPUSH PRN ×2 (07:33→09:50)
[2019-02-11] MEDS ORDERED: ONDANSETRON 4 MG/2 ML VIAL IVPUSH PRN ×2 (07:33→09:50)
[2019-02-11] MEDS ORDERED: LACTATED RINGERS SOLUTION 1,000 ML IV SCH (07:45)
[2019-02-11] MEDS ORDERED: ROCURONIUM BROMIDE 50 MG/5 ML SYRINGE ONE (07:46)
[2019-02-11] MEDS ORDERED: PROPOFOL 20 ML ONE (07:46)
[2019-02-11] MEDS ORDERED: MIDAZOLAM HCL 2 MG/2 ML SINGLE DOSE VIAL ONE (07:46)
[2019-02-11] MEDS ORDERED: LIDOCAINE HCL/PF 2% SDV 5ML VIAL ONE (07:57)
[2019-02-11] MEDS ORDERED: ceFAZolin SODIUM 1 GM VIAL ONE (08:10)
[2019-02-11] MEDS ORDERED: ceFAZolin SODIUM 1 GM VIAL IVPB ONE (08:13)
[2019-02-11] MEDS ORDERED: DEXAMETHASONE SOD PHOSPHATE 4 MG/1 ML VIAL ONE (08:19)
[2019-02-11] MEDS ORDERED: GLYCOPYRROLATE 0.2 MG/1 ML VIAL ONE (09:05)
[2019-02-11] MEDS ORDERED: NEOSTIGMINE METHYLSULFATE 0.5 MG/ML - 10 ML MDV ONE (09:06)
--- NOTE | 2019-02-11 09:36 | OP ---
Operative Note - Note: Operative Date: 02/11/19 Pre-Operative Diagnosis: acute cholecystitis/cholelithiasis Operation: lap cholecystectomy Findings: acute cholecystitis/cholelithiasis Post-Operative Diagnosis: Same as Pre-op Surgeon: Aguila Gold Mfts: Pilar Washburn Anesthesiologist/AC/DC REWINDER: Vick Irizarry Anesthesia: General Specimens Removed: gallbladder and contents Estimated Blood Loss (mls): 20
[2019-02-11] MEDS ORDERED: PROCHLORPERAZINE INJECTION 10 MG/2 ML VIAL IVPB PRN (09:50)
[2019-02-11] MEDS ORDERED: oxyCODONE HCL 5 MG TABLET PO PRN ×2 (10:01)
[2019-02-11] MEDS ORDERED: ACETAMINOPHEN 325 MG TABLET (FP) PO PRN (10:02)
--- NOTE | 2019-02-11 10:05 | SURG ---
Surgery Harpsichord Maker Note Harpsichord Maker: Pilar Washburn PA-C Date of Service: 02/11/19 Diagnosis: acute cholecystitis/cholelithiasis Procedure: lap cholecystectomy I was present for the entirety of the operative procedure. For further detail, please refer to operative report. Visit type - Case Type Case Type: ED Admission - Emergency Emergency Visit: Yes ED Registration Date: 02/09/19 Care time: The patient presented to the Emergency Department on the above date and was hospitalized for further evaluation of their emergent condition. - New patient This patient is new to me today: Yes Date on this admission: 02/11/19
[2019-02-11] MEDS: LACTATED RINGERS SOLUTION 1,000 ML IV SCH ×2 (10:26→23:31)
[2019-02-11 11:31] LABS: BASO % 0.2 % (0-2.0); EOS % 0.4 % (0-4.5); HEMATOCRIT 38.4 % (32.4-45.2); HEMOGLOBIN 12.9 GM/dL (10.7-15.3); LYMPH % 12.2 % (8-40); MCH 29.3 pg (25.7-33.7); MCHC 33.5 g/dl (32.0-36.0); MEAN CELL VOLUME 87.6 fl (80-96); MEAN PLT VOLUME 8.8 fl (7.5-11.1); MONO % 1.3 % (3.8-10.2); NEUT % 85.9 % (42.8-82.8); PLATELET COUNT 210 K/MM3 (134-434); RBC 4.39 M/mm3 (3.60-5.2); RDW 14.7 % (11.6-15.6); WHITE BLOOD COUNT 9.7 K/mm3 (4.0-10.0)
[2019-02-11 12:00] LABS: ALBUMIN 3.4 g/dl (3.4-5.0); BILIRUBIN,TOTAL 0.4 mg/dL (0.2-1); BLOOD UREA NITROGEN 10.4 mg/dL (7-18); CREATININE 0.7 mg/dL (0.55-1.3); POTASSIUM 4.1 mmol/L (3.5-5.1); TOT PROT 7.1 g/dl (6.4-8.2)
[2019-02-11 17:04] VITALS: BMI 42.0
--- NOTE | 2019-02-11 17:32 | PN ---
Teaching Attending Note Name of Resident: Hedy Turner ATTENDING PHYSICIAN STATEMENT I saw and evaluated the patient. I reviewed the resident's note and discussed the case with the resident. I agree with the resident's findings and plan as documented. SUBJECTIVE: Epigastric/RUQ pain improved immediately post-op. No further nausea/ vomiting/diarrhea. No fever/chills. OBJECTIVE: Afebrile, Hemodynamically Stable. Last Vital Signs Temp Pulse Resp BP Pulse Ox 97.9 F 97 H 18 150/93 95 02/11/19 14:56 02/11/19 14:56 02/11/19 14:56 02/11/19 14:56 02/11/19 11:12 Heart - S1, S2, RRR Lungs - clear to auscultation Abdomen - RUQ/Epigastric tenderness improved. Bowel Sounds normal. trochar sites dressed and clean. Extremities - no edema, no calf tenderness. Neuro - AAO x 3. Tone/Power normal all extremities. Laboratory Results - last 24 hr 02/10/19 02/11/19 02/11/19 21:03 05:35 11:10 WBC 9.7 RBC 4.39 Hgb 12.9 Hct 38.4 MCV 87.6 MCH 29.3 MCHC 33.5 RDW 14.7 Plt Count 210 MPV 8.8 Absolute Neuts (auto) 8.3 H Neutrophils % 85.9 H D Lymphocytes % 12.2 D Monocytes % 1.3 L Eosinophils % 0.4 Basophils % 0.2 Nucleated RBC % 0 Sodium Potassium Chloride Carbon Dioxide Anion Gap BUN Creatinine Est GFR (CKD-EPI)AfAm Est GFR (CKD-EPI)NonAf POC Glucometer 82 100 Random Glucose Calcium Total Bilirubin AST ALT Alkaline Phosphatase Total Protein Albumin 02/11/19 02/11/19 11:10 17:25 WBC RBC Hgb Hct MCV MCH MCHC RDW Plt Count MPV Absolute Neuts (auto) Neutrophils % Lymphocytes % Monocytes % Eosinophils % Basophils % Nucleated RBC % Sodium 141 Potassium 4.1 Chloride 107 Carbon Dioxide 27 Anion Gap 7 L BUN 10.4 Creatinine 0.7 Est GFR (CKD-EPI)AfAm 101.03 Est GFR (CKD-EPI)NonAf 87.17 POC Glucometer 128 Random Glucose 118 H Calcium 9.0 Total Bilirubin 0.4 AST 44 H ALT 43 Alkaline Phosphatase 60 Total Protein 7.1 Albumin 3.4 Current Medications Generic Name Dose Route Start Last Admin Trade Name Freq PRN Reason Stop Dose Admin Acetaminophen 650 mg 02/11/19 10:02 Tylenol - PO Q6H PRN PAIN OR FEVER Lactated Ringer's 1,000 mls @ 125 mls/hr 02/11/19 09:50 02/11/19 10:26 Lactated Ringers Solution IV 150 mls ASDIR GEOVANNY Administration Insulin Aspart 1 vial 02/11/19 11:00 02/11/19 17:26 Novolog Vial Sliding Scale - SQ Not Given ACHS [facility] Protocol Ondansetron HCl 4 mg 02/11/19 09:50 Zofran Injection IVPUSH Q6H PRN NAUSEA AND/OR VOMITING Oxycodone HCl 5 mg 02/11/19 10:01 Roxicodone - PO Q4H PRN PAIN LEVEL 1-5 Oxycodone HCl 10 mg 02/11/19 10:01 02/11/19 16:20 Roxicodone - PO 10 mg Q4H PRN Administration PAIN LEVEL 6-10 Prochlorperazine Edisylate 10 mg 02/11/19 09:50 Compazine Injection - IVPB Q6H PRN NAUSEA AND/OR VOMITING Home Medications Medication Instructions Recorded Amlodipine Besylate [Norvasc -] 10 mg PO DAILY 02/09/19 Hydrochlorothiazide [Hctz -] 25 mg PO DAILY 02/09/19 Lisinopril 20 mg PO DAILY 02/09/19 Metformin HCl [Metformin HCl ER] 500 mg PO BID 02/09/19 Simvastatin 20 mg PO HS 02/09/19 ASSESSMENT AND PLAN: 73 year old female with history of DM 2, HLD, HTN, presents with 2 day history of RUQ/Epigastric pain, with associated nausea/vomiting/diarrhea. 1. Bliary colic ?cholecystitis Immediately post-op s/p lap alec Abdo US - Cholelithiasis, Hepatomegaly CT A/P - Cholelithiasis Leukocytosis resolved Lactic Acidosis resolved. LFTs wnl Trial of clear liquids. On IV Fluids/IV Zosyn Surgery following 2. DOROTHY - resolved with IV hydration. No obstruction on imaging. 3. HTN - Home antihypertensive meds (Lisinopril, HCTZ, Norvasc) held. Monitor BP. 4. DM 2 - Maintain on Novolog sliding scale. Metformin held. Currently NPO pending further surgical eval/intervention 5. HLD - Normally on Statin DVT Px - Heparin SQ
--- NOTE | 2019-02-11 18:37 | PN ---
Physical Exam: SUBJECTIVE: Patient seen and examined OBJECTIVE: Vital Signs Period Temp Pulse Resp BP Sys/Perkins Pulse Ox Last 24 Hr 97.9 F-98.8 F 68-102 16-20 120-152/70-93 95-96 GENERAL: The patient is awake, alert, and fully oriented, in no acute distress. HEAD: Normal with no signs of trauma. EYES: PERRL, extraocular movements intact, sclera anicteric, conjunctiva clear. No ptosis. ENT: Ears normal, nares patent, oropharynx clear without exudates, moist mucous membranes. NECK: Trachea midline, full range of motion, supple. LUNGS: Breath sounds equal, clear to auscultation bilaterally, no wheezes, no crackles, no accessory muscle use. HEART: Regular rate and rhythm, S1, S2 without murmur, rub or gallop. ABDOMEN: Soft, nontender, nondistended, normoactive bowel sounds, no guarding, no rebound, no hepatosplenomegaly, no masses. EXTREMITIES: 2+ pulses, warm, well-perfused, no edema. NEUROLOGICAL: Cranial nerves II through XII grossly intact. Normal speech, gait not observed. PSYCH: Normal mood, normal affect. SKIN: Warm, dry, normal turgor, no rashes or lesions noted Laboratory Results - last 24 hr 02/10/19 02/11/19 02/11/19 21:03 05:35 11:10 WBC 9.7 RBC 4.39 Hgb 12.9 Hct 38.4 MCV 87.6 MCH 29.3 MCHC 33.5 RDW 14.7 Plt Count 210 MPV 8.8 Absolute Neuts (auto) 8.3 H Neutrophils % 85.9 H D Lymphocytes % 12.2 D Monocytes % 1.3 L Eosinophils % 0.4 Basophils % 0.2 Nucleated RBC % 0 Sodium Potassium Chloride Carbon Dioxide Anion Gap BUN Creatinine Est GFR (CKD-EPI)AfAm Est GFR (CKD-EPI)NonAf POC Glucometer 82 100 Random Glucose Calcium Total Bilirubin AST ALT Alkaline Phosphatase Total Protein Albumin 02/11/19 02/11/19 11:10 17:25 WBC RBC Hgb Hct MCV MCH MCHC RDW Plt Count MPV Absolute Neuts (auto) Neutrophils % Lymphocytes % Monocytes % Eosinophils % Basophils % Nucleated RBC % Sodium 141 Potassium 4.1 Chloride 107 Carbon Dioxide 27 Anion Gap 7 L BUN 10.4 Creatinine 0.7 Est GFR (CKD-EPI)AfAm 101.03 Est GFR (CKD-EPI)NonAf 87.17 POC Glucometer 128 Random Glucose 118 H Calcium 9.0 Total Bilirubin 0.4 AST 44 H ALT 43 Alkaline Phosphatase 60 Total Protein 7.1 Albumin 3.4 Active Medications Generic Name Dose Route Start Last Admin Trade Name Freq PRN Reason Stop Dose Admin Acetaminophen 650 mg 02/11/19 10:02 Tylenol - PO Q6H PRN PAIN OR FEVER Lactated Ringer's 1,000 mls @ 125 mls/hr 02/11/19 09:50 02/11/19 10:26 Lactated Ringers Solution IV 150 mls ASDIR GEOVANNY Administration Insulin Aspart 1 vial 02/11/19 11:00 02/11/19 17:26 Novolog Vial Sliding Scale - SQ Not Given ACHS [facility] Protocol Ondansetron HCl 4 mg 02/11/19 09:50 Zofran Injection IVPUSH Q6H PRN NAUSEA AND/OR VOMITING Oxycodone HCl 5 mg 02/11/19 10:01 Roxicodone - PO Q4H PRN PAIN LEVEL 1-5 Oxycodone HCl 10 mg 02/11/19 10:01 02/11/19 16:20 Roxicodone - PO 10 mg Q4H PRN Administration PAIN LEVEL 6-10 Prochlorperazine Edisylate 10 mg 02/11/19 09:50 Compazine Injection - IVPB Q6H PRN NAUSEA AND/OR VOMITING ASSESSMENT/PLAN: ATTENDING PHYSICIAN STATEMENT I saw and evaluated the patient. I reviewed the resident's note and discussed the case with the resident. I agree with the resident's findings and plan as documented. SUBJECTIVE: OBJECTIVE: ASSESSMENT AND PLAN:
--- NOTE | 2019-02-12 06:31 | OP ---
DATE OF OPERATION: 02/11/2019 PREOPERATIVE DIAGNOSIS: Cholecystitis, cholelithiasis. POSTOPERATIVE DIAGNOSIS: Cholecystitis, cholelithiasis. PROCEDURE: Laparoscopic cholecystectomy SURGEON: Aguila Gold MD SUPERVISOR ROD PLACING: ALICIA Caban ANESTHESIA: General. OPERATIVE FINDINGS: Acute cholecystitis and cholelithiasis. The rest of the findings were unremarkable. DESCRIPTION OF PROCEDURE: The patient was placed on the operating room table in supine position. After the induction of general anesthesia, the patient's abdomen was prepped with ChloraPrep and draped in sterile fashion. Time-out was taken and then pneumoperitoneum established above the umbilicus using a Veress needle. Once 15 mm of intra-abdominal pressure was obtained, a 5-mm port was placed at the umbilicus. Additional lateral 5-mm ports and a subxiphoid 12-mm port were placed and laparoscopy carried out, and the previously noted findings were observed. The gallbladder was placed on cephalad and lateral traction, and dissection was begun at the neck of the gallbladder where the peritoneum was opened medially and laterally using blunt and sharp dissection and electrocautery. Dissection continued in the triangle of Calot where the cystic duct was identified coursing from the neck of the gallbladder distally to the common bile duct. It was dissected proximally and distally for length. Similarly, the artery was similarly identified and dissected. A critical view of safety was taken, and then the cystic duct divided proximally and distally using Endo Zeferino after it was clipped twice proximally and distally with large hemoclips. The artery was similarly clipped and divided. Hemostasis was checked for and noted to be good and then the gallbladder was removed from the liver bed in a retrograde fashion using electrocautery. Prior to removal from the edge of the liver, hemostasis was again verified and then the gallbladder removed from the edge of the liver, placed in an EndoCatch, and brought out through the subxiphoid port. Pneumoperitoneum was reestablished, hemostasis verified again, and then the 5-mm lateral and subxiphoid ports were removed under laparoscopic vision without evidence of bleeding from the port sites. The umbilical port was removed and the pneumoperitoneum evacuated. All port sites were infiltrated with 0.5% Marcaine and the skin edges closed with 4-0 Biosyn in a subcuticular and continuous fashion. Steri-Strips and Band-Aid dressings were placed and the procedure terminated at this point and the patient aroused from general anesthesia and transferred to the post anesthesia care unit in stable condition awake and alert. ESTIMATED BLOOD LOSS: 20 mL. REPLACEMENTS: Crystalloid. DRAINS: None. SPECIMENS: Gallbladder and contents to pathology. I, Aguila Gold, was physically present in the operating room from the time the patient was placed on the operating room table until she was transferred to the post anesthesia care unit in [employer]. MD MAYITO Hennessy/[id number] MTDD
[2019-02-12] MEDS: INSULIN SLIDING SCALE (NOVOLOG) 1 VIAL SQ SCH ×2 (06:43→11:16)
[2019-02-12 07:05] VITALS: TEMP 98.1
[2019-02-12 07:49] VITALS: BP 136/80; PULSE 65
--- NOTE | 2019-02-12 10:32 | PN ---
Progress Note (short form) - Note Progress Note: Attending Surgeon POD#1 s/p lap alec No c/o; tolerated liquids and voided Last Vital Signs Temp Pulse Resp BP Pulse Ox 98.1 F 65 16 136/80 97 02/12/19 07:49 02/12/19 07:49 02/12/19 07:49 02/12/19 07:49 02/12/19 08:57 abdo-soft; flat and non tender e/f epigastric port site; port site dressings c/d /i; o/w negative. IMP: stable post op PLAN Regular diet and d/c today to office f/u 7-10 days; a/a/u by the patient and her family as explained in [place]. Aguila Gold MD FACS
--- NOTE | 2019-02-12 12:19 | DS ---
Physical Exam: SUBJECTIVE: Patient seen and reports her pain is tolerable. Patient has passed gas but has not had any bowel movements. OBJECTIVE: Vital Signs Period Temp Pulse Resp BP Sys/Perkins Pulse Ox Last 24 Hr 97.9 F-98.9 F 65-97 16-20 126-150/61-93 97-97 PHYSICAL EXAM GENERAL: The patient is awake, alert, and fully oriented, in no acute distress. LUNGS: Breath sounds equal, clear to auscultation bilaterally, no wheezes, no crackles, no accessory muscle use. HEART: Regular rate and rhythm, S1, S2 without murmur, rub or gallop. ABDOMEN: tenderness to palpation, covered incision sites EXTREMITIES: 2+ pulses, warm, well-perfused, no edema. NEUROLOGICAL: Cranial nerves II through XII grossly intact. Normal speech, gait not observed. PSYCH: Normal mood, normal affect. SKIN: Warm, dry, normal turgor, no rashes or lesions noted. LABS Laboratory Results - last 24 hr 02/11/19 02/11/19 02/12/19 17:25 20:37 05:44 POC Glucometer 128 129 100 02/12/19 11:15 POC Glucometer 103 HOSPITAL COURSE: Date of Admission:02/09/19 Patient is a 73 y/o female with a history of diabetes, HLD, HTN, and colon polyps who was admitted for cholecystitis. Imaging portrayed gallstrones and labs indicated sepsis. patient was treated with abx and fluids. Lactic acidosis resolved. Patient underwent cholecystectomy. Patient tolerated surgery and had minimal pain post op. Patient stable for discharge. RUQ US: gallbladder normal, with stones, hepatomegly HIDA: patent cystic duct and biliary tree Date of Discharge: 02/12/19 Minutes to complete discharge: 40 Discharge Summary Problems reviewed: Yes Reason For Visit: CHOLECYSTITIS Condition: Good - Instructions Diet, Activity, Other Instructions: Dr. Gold Discharge Instructions Dear ELI BULL, Post Operative Instructions Physical activity Resume your normal everyday activity as tolerated no heavy lifting or exercise until seen by your surgeon. You may walk unlimited amounts of and climb stairs. You may resume driving the car when you feel safe and comfortable behind the wheel. Wound care If you have a bandage, leave it on, and keep dry for 48 hours. After that time discard the outer bandage. If there are tapes on the skin under the outer bandage, leave them in place. They will peel off in the next 7 to 10 days. Do Not peel them off. You may shower 2 days after surgery but do not submerge the incisions. If there are tapes present on the skin, they can get wet. Do not apply lotion or ointments to incisions. Diet There are no dietary restrictions. Eat healthy, high-fiber foods. Drink 6 to 8 glasses of liquid each day. This will assist in keeping your bowels are regular. Pain management You may take Tylenol or acetaminophen or Ibuprofen (for example, Motrin, Advil etc.) for any pain. If you need more pain medications please call our office. Call Dr. Gold for any of the following: Severe pain not relieved by medication Fever of 101 or higher Excessive bleeding or drainage on dressing Inability to urinate Call the office at [phone] for a post operative appointment in 7 - 10 days. Please follow up with your Primary Care Physician in one week. Please continue to take all your home medications as prescribed. Return to the Emergency Department if you have nausea, vomiting, chest pain, shortness of breath or any worsening of symptoms. En Espanol Dr. Gold Instrucciones de fang Querida ELI ML, Instrucciones postoperatorias Actividad fsica Reanude rivas actividad diaria normal segn lo tolerado, sin levantar objetos pesados ??o hacer ejercicio hasta que lo baldev rivas cirujano. Puede caminar cantidades ilimitadas y subir escaleras. Puede reanudar la conduccin del automvil cuando se sienta seguro y cmodo al volante. Cuidado de heridas Si tiene un vendaje, djelo puesto y mantngalo seco ivett 48 horas. Despus de juana tiempo, deseche el vendaje externo. Si hay cintas en la piel debajo del vendaje exterior, djelas en rivas lugar. Se despegarn en los prximos 7 a 10 fernandes. No los despegues. Puede ducharse 2 fernandes despus de la ciruga, jasson no sumerja las incisiones. Si hay cintas presentes en la piel, pueden mojarse. No aplique locin ni ungentos a las incisiones. Dieta No hay restricciones dietticas. Coma alimentos saludables con alto contenido de fibra. Diana de 6 a 8 vasos de lquido al da. [place] ayudar a mantener harvinder intestinos regulares. El manejo del dolor Puede bhavna Tylenol o acetaminofeno o Ibuprofeno (por ejemplo, Motrin, Advil, etc.) para cualquier dolor. Si necesita ms analgsicos, llame a nuestra oficina. Llame al Dr. Gold por cualquiera de los siguientes: Dolor intenso no aliviado con medicamentos. Fiebre de 101 o ms Sangrado excesivo o drenaje en el apsito Incapacidad para orinar Llame a la oficina al [phone] para claudette britta postoperatoria en 7 a 10 fernandes. Buck un seguimiento con rivas mdico de atencin primaria en claudette semana. Contine tomando todos harvinder medicamentos caseros segn lo recetado. Regrese al departamento de emergencias si tiene nuseas, vmitos, dolor en el pecho, falta de aliento o cualquier empeoramiento de los sntomas. Referrals: Aguila Gold MD [Staff Physician] - 1 Week Jimy Griggs [Primary Care Provider] - 1 Week Disposition: HOME - Home Medications Comprehensive Discharge Medication List: Ambulatory Orders Amlodipine Besylate [Norvasc -] 10 mg PO DAILY 02/09/19 Hydrochlorothiazide [Hctz -] 25 mg PO DAILY 02/09/19 Lisinopril 20 mg PO DAILY 02/09/19 Metformin HCl [Metformin HCl ER] 500 mg PO BID 02/09/19 Simvastatin 20 mg PO HS 02/09/19 This patient is new to me today: No Emergency Visit: No Critical Care patient: No - Discharge Referral Referred to [facility] No ATTENDING PHYSICIAN STATEMENT I saw and evaluated the patient. I reviewed the resident's note and discussed the case with the resident. I agree with the resident's findings and plan as documented. SUBJECTIVE: OBJECTIVE: ASSESSMENT AND PLAN:
--- NOTE | 2019-02-12 12:32 | PN ---
Teaching Attending Note Name of Resident: Lindsey Benson ATTENDING PHYSICIAN STATEMENT I saw and evaluated the patient. I reviewed the resident's note and discussed the case with the resident. I agree with the resident's findings and plan as documented. SSUBJECTIVE: Epigastric/RUQ pain resolved. No further nausea/vomiting/diarrhea. No fever/chills. Tolerating oral intake post-op. Passing gas. OBJECTIVE: Afebrile, Hemodynamically Stable. Last Vital Signs Temp Pulse Resp BP Pulse Ox 98.1 F 65 16 136/80 97 02/12/19 07:49 02/12/19 07:49 02/12/19 07:49 02/12/19 07:49 02/12/19 12:00 Heart - S1, S2, RRR Lungs - clear to auscultation Abdomen - RUQ/Epigastric tenderness improved. Bowel Sounds normal. trochar sites clean. Extremities - no edema, no calf tenderness. Neuro - AAO x 3. Tone/Power normal all extremities. Laboratory Results - last 24 hr 02/11/19 02/11/19 02/12/19 17:25 20:37 05:44 POC Glucometer 128 129 100 02/12/19 11:15 POC Glucometer 103 Current Medications Generic Name Dose Route Start Last Admin Trade Name Freq PRN Reason Stop Dose Admin Acetaminophen 650 mg 02/11/19 10:02 Tylenol - PO Q6H PRN PAIN OR FEVER Lactated Ringer's 1,000 mls @ 125 mls/hr 02/11/19 09:50 02/11/19 23:31 Lactated Ringers Solution IV 125 mls/hr ASDIR GEOVANNY Administration Insulin Aspart 1 vial 02/11/19 11:00 02/12/19 11:16 Novolog Vial Sliding Scale - SQ Not Given ACHS GEOVANNY Protocol Ondansetron HCl 4 mg 02/11/19 09:50 Zofran Injection IVPUSH Q6H PRN NAUSEA AND/OR VOMITING Oxycodone HCl 5 mg 02/11/19 10:01 Roxicodone - PO Q4H PRN PAIN LEVEL 1-5 Oxycodone HCl 10 mg 02/11/19 10:01 02/11/19 16:20 Roxicodone - PO 10 mg Q4H PRN Administration PAIN LEVEL 6-10 Prochlorperazine Edisylate 10 mg 02/11/19 09:50 Compazine Injection - IVPB Q6H PRN NAUSEA AND/OR VOMITING Home Medications Medication Instructions Recorded RX: Amlodipine Besylate [Norvasc -] 10 mg PO DAILY 02/09/19 RX: Hydrochlorothiazide [Hctz -] 25 mg PO DAILY 02/09/19 RX: Lisinopril 20 mg PO DAILY 02/09/19 RX: Metformin HCl [Metformin HCl 500 mg PO BID 02/09/19 ER] RX: Simvastatin 20 mg PO HS 02/09/19 ASSESSMENT AND PLAN: 73 year old female with history fo DM 2, HLD, HTN, presents with 2 day history of RUQ/Epigastric pain, with associated nausea/vomiting/diarrhea. 1. Bliary colic ?cholecystitis POD 1 s/p lap Cholecytectomy Abdo US - Cholelithiasis, Hepatomegaly CT A/P - Cholelithiasis Leukocytosis resolved Lactic Acidosis resolved. LFTs wnl Diet tolerated, passing gas. Medically and surgically clear for discharge with out-patient follow up. 2. DOROTHY - resolved with IV hydration. No obstruction on imaging. 3. HTN - Home antihypertensive meds to be resumed on discharge 4. DM 2 - resume metformin on discharge. 5. HLD - Normally on Statin DVT Px - Heparin SQ Medically/surgically optimized for discharge. Surgery out-patient follow up.
[2019-02-12 12:42] LABS: BASO % 0.2 % (0-2.0); EOS % 1.3 % (0-4.5); HEMOGLOBIN 11.8 GM/dL (10.7-15.3); LYMPH % 36.3 % (8-40); MCH 28.9 pg (25.7-33.7); MCHC 32.9 g/dl (32.0-36.0); MEAN CELL VOLUME 87.9 fl (80-96); MEAN PLT VOLUME 9.2 fl (7.5-11.1); MONO % 5.4 % (3.8-10.2); NEUT % 56.8 % (42.8-82.8); PLATELET COUNT 196 K/MM3 (134-434); RBC 4.09 M/mm3 (3.60-5.2); RDW 14.3 % (11.6-15.6); WHITE BLOOD COUNT 10.1 K/mm3 (4.0-10.0)
[2019-02-12 13:07] LABS: ALBUMIN 3.2 g/dl (3.4-5.0); BILIRUBIN,TOTAL 0.4 mg/dL (0.2-1); CALCIUM 8.8 mg/dL (8.5-10.1); CREATININE 0.8 mg/dL (0.55-1.3); POTASSIUM 3.8 mmol/L (3.5-5.1); TOT PROT 6.4 g/dl (6.4-8.2)
[2019-02-12] MEDS ORDERED: FLU VACCINE QUAD 60 MCG/0.5 ML (MDV 19-20) IM ONE (16:00)
[2019-02-12] MEDS ORDERED: PNEUMOC 13-VAL CONJ-DIP CRM/PF 0.5 ML DISP.SYRIN IM ONE (16:00)
--- NOTE | 2019-02-14 17:52 | PATH ---
Surgical Pathology Report Patient Name: ELI BULL [facility]. Rec. #: [id number] /Age/Gender: 1945 (Age: 73) / F Account: [id number] Location: [address] [place] [address]/[facility] Taken: 02/11/2019 Received: 02/11/2019 Reported: 02/14/2019 Physicians: MD Bogdan Arizmendi MD Specimen(s) Received GALLBLADDER Clinical History Cholecystitis Final Diagnosis GALLBLADDER, LAPAROSCOPIC CHOLECYSTECTOMY: CHRONIC CHOLECYSTITIS , CHOLESTEROLOSIS, AND CHOLELITHIASIS. Electronically Signed Lindsey Jj M.D. Gross Description Received in formalin, labeled "gallbladder," is a 9 x 5 x 2.5 cm. gallbladder with a 0.6 cm. in length portion of cystic duct attached. The outer surface is green-hammer and varies from smooth to shaggy. The lumen contains few yellow choleliths ranging in size from 0.3-1.5 cm in greatest dimension. The mucosa is green, velvety with cholesterol stippling. The wall of the gallbladder measures 0.2 cm. in thickness. Communications Intern sections are submitted in one cassette. MLSZ/02/11/2019 sanml/02/11/2019
== END 2019-02-12 16:18 | disposition home or self-care (01) | DRG 854 ==
LOC: JER 08:05 → JERBED 09:29 → J6S 16:25
PROC: 0FT44ZZ Resection of Gallbladder, Percutaneous Endoscopic Approach (ICD-10-PCS; principal; 2019-02-11 08:00)
DX: A41.9 Sepsis, unspecified organism (principal); K80.00 Calculus of gallbladder with acute cholecystitis without obstruction; B19.10 Unspecified viral hepatitis B without hepatic coma; E87.2 Acidosis; N17.9 Acute kidney failure, unspecified; Z68.41 Body mass index [BMI] 40.0-44.9, adult; E78.5 Hyperlipidemia, unspecified; Z79.84 Long term (current) use of oral hypoglycemic drugs; E66.9 Obesity, unspecified; E11.22 Type 2 diabetes mellitus with diabetic chronic kidney disease; I12.9 Hypertensive chronic kidney disease with stage 1 through stage 4 chronic kidney disease, or unspecified chronic kidney disease; N18.3 Chronic kidney disease, stage 3 (moderate); R16.0 Hepatomegaly, not elsewhere classified
CPT/HCPCS: 36415; 71045-TC-FY; 74176-TC; 76705-TC; 78226-TC; 80053; 82550; 82553; 82803; 82962; 83605; 83690; 83735; 84100; 84484; 85025; 85610; 85730; 86850; 86900; 86901; 87040; 88304-TC; 90670; 93005; 93010; 94760; 99285-25; A9537; G0008; G0009; J0131; J1644; J7030; Q2036